=== PATIENT | male | born 1995 | race Caucasian/White ===

== ENCOUNTER 2022-08-30 13:37 | Emergency (ER) | payer OTHER ==
[2022-08-30] MEDS ORDERED: Sodium Chloride 0.9% 1,000 ML IV ONE (14:03)
[2022-08-30 16:31] LABS: CARBON DIOXIDE,CO2 27.3 mmol/L (21.0-32.0)
[2022-08-30] MEDS ORDERED: Iopamidol 755 MG/ML 500 ML Multipack Bottle IVPUSH STA (16:50)
== END 2022-08-30 18:25 | disposition left against medical advice (07) ==
LOC: MW.ED 13:37
DX: R10.32 Left lower quadrant pain (principal)
CPT/HCPCS: 36415; 74177; 80053; 83690; 85025; 85610; 96360; 99284; J7030; Q9967